=== PATIENT | male | born 1945 | race Caucasian/White ===

== ENCOUNTER 2020-11-26 10:09 | Outpatient (CLI) | payer MEDICARE | END 2020-11-26 23:59 | disposition home or self-care (01) | LOC: RT 10:09 | PROVIDERS: ATTEND Family Medicine | DX: R94.2 Abnormal results of pulmonary function studies (principal); K44.9 Diaphragmatic hernia without obstruction or gangrene; M43.8X4 Other specified deforming dorsopathies, thoracic region; R06.02 Shortness of breath | CPT/HCPCS: 71046; 94010; 94729 ==